=== PATIENT | male | born 1935 | race Caucasian/White ===

== ENCOUNTER 2018-12-14 10:21 | Inpatient (IN) | payer MEDICARE, BC ==
[2018-12-14] MEDS: ALPRAZolam 0.25 MG Tab PO PRN (20:45)
[2018-12-14] MEDS: Chondroitin/Glucosamine Cap PO SCH (20:45)
[2018-12-14] MEDS: Ascorbic Acid 500 MG Tab PO SCH (20:45)
[2018-12-14] MEDS: Donepezil 10 MG Tab PO SCH (20:49)
[2018-12-14] MEDS: Acetaminophen 325 MG Tab PO PRN (20:49)
[2018-12-15] MEDS: Acetaminophen 325 MG Tab PO PRN ×2 (06:29→13:25)
[2018-12-15] MEDS: Levothyroxine 75 MCG Tab PO SCH (06:29)
[2018-12-15 07:47] LABS: ANION GAP 13.2 mmol/L (5-15); CHLORIDE,CL 100 mmol/L (98-115); SODIUM,NA 139 mmol/L (136-145)
--- NOTE | 2018-12-15 08:53 | CR ---
[id number] RAD/RAD Chest PA And Lateral EXAM: FRONTAL AND LATERAL CHEST INDICATION: Fever. COMPARISON: None. DISCUSSION: The heart is mildly enlarged. Mild bilateral interstitial infiltrates and/or edema with patchy airspace opacities on the right that could represent asymmetric pulmonary edema or sequela of infection. There is a small right pleural effusion with associated right base atelectasis. IMPRESSION: 1. Bilateral interstitial and right airspace opacities, pulmonary edema and/or infiltrates could both have this appearance. Holland Prado MD 12/15/18 0852 Thank you for allowing us to participate in the care of your patient.
[2018-12-15] MEDS ORDERED: Hydrochlorothiazide 25 MG Tab PO SCH (09:00)
[2018-12-15] MEDS ORDERED: FLAXSEED OIL 2000 MG PO SCH (09:00)
[2018-12-15] MEDS: Multivitamins with Minerals/Iron/Folic Acid/Lycopene Tab PO SCH (09:02)
[2018-12-15] MEDS: Aspirin 325 MG Tab.EC PO SCH (09:02)
[2018-12-15] MEDS: Ascorbic Acid 500 MG Tab PO SCH ×2 (09:03→20:14)
[2018-12-15] MEDS: Chondroitin/Glucosamine Cap PO SCH ×2 (09:03→20:12)
[2018-12-15] MEDS: Vitamin E (dl-alpha-tocopherol acetate) 400 Unit Cap PO SCH (09:03)
[2018-12-15] MEDS: Cholecalciferol (Vitamin D3) 25 MCG Tab PO SCH (09:15)
[2018-12-15] MEDS: Fish Oil/Omega-3 Fatty Acids 1 Gm Cap PO SCH (09:15)
[2018-12-15] MEDS: Psyllium Husk Powder Sugar Free 5.85 GM Packet PO SCH (09:16)
--- NOTE | 2018-12-15 09:30 | PCM.PN ---
- General Info Date of Service: 12/15/18 Functional Status: Reports: Pain Controlled, Tolerating Diet, Urinating ( Incontinent). Denies: Ambulating - Review of Systems General: Reports: Weakness Pulmonary: Reports: Cough. Denies: Shortness of Breath, Sputum, Wheezing Cardiovascular: Denies: Chest Pain, Palpitations, Edema Gastrointestinal: Reports: Constipation (Per nurse's bowel movement yesterday). Denies: Abdominal Pain, Decreased Appetite, Diarrhea, Nausea, Vomiting Genitourinary: Reports: Incontinence Musculoskeletal: Reports: No Symptoms Skin: Reports: Pallor. Denies: Jaundice, Diaphoresis, Bruising Neurological: Reports: Confusion, Pre-Existing Deficit. Denies: Tremors Psychiatric: Reports: Confusion. Denies: Agitation - Patient Data Vitals - Most Recent: Last Vital Signs Temp 100.5 F 12/15/18 06:35 Pulse 84 12/15/18 06:35 Resp 24 H 12/15/18 06:35 BP 106/54 L 12/15/18 06:35 Pulse Ox 91 L 12/15/18 06:45 Weight - Most Recent: 136 lb 8 oz I&O - Last 24 Hours: Intake & Output 12/14/18 12/15/18 12/15/18 22:59 06:59 14:59 Intake Total 150 150 Output Total 30 Balance 150 120 Lab Results Last 24 Hours: Laboratory Results - last 24 hr 12/14/18 12/14/18 12/15/18 Range/Units 19:00 19:00 06:28 WBC 28.47 H (5.00-10.00) 10^3/uL RBC 3.41 L (4.50-6.00) 10^6/uL Hgb 11.3 L (13.0-17.0) g/dL Hct 33.5 L (40.0-52.0) % MCV 98.2 H (82.0-92.0) fL MCH 33.1 H (27.0-31.0) pg MCHC 33.7 (32.0-36.0) g/dL RDW 13.2 (11.5-14.5) % Plt Count 406 H (150-400) 10^3/uL MPV 9.9 (7.4-10.4) fL Add Manual Diff Yes Neutrophils % (Manual) 86 H (50-70) % Band Neutrophils % 1 L (4-12) % Lymphocytes % (Manual) 7 L (20-40) % Monocytes % (Manual) 6 (2-8) % Eosinophils % (Manual) (1-3) % Absolute Neutrophils 24.48 Band Neutrophils # 0.28 Lymphocytes # (Manual) 1.99 Monocytes # (Manual) 1.71 Eosinophils # (Manual) ESR (0-15) mm/hr Sodium (136-145) mmol/L Potassium (3.3-5.3) mmol/L Chloride (98-115) mmol/L Carbon Dioxide (21.0-32.0) mmol/L Anion Gap (5-15) mmol/L BUN (6-25) mg/dL Creatinine (0.51-1.17) mg/dL Est Cr Clr Drug Dosing mL/min Estimated GFR (MDRD) mL/min Glucose (75 - 99) mg/dL Lactic Acid 0.9 (0.4-2.0) mmol/L Calcium (8.7-10.3) mg/dL Total Bilirubin (0.2-1.0) mg/dL AST (15-37) U/L ALT (12-78) U/L Alkaline Phosphatase (46-116) IU/L Total Protein (6.4-8.2) g/dL Albumin (3.00-4.80) g/dL Specimen Type Urinvoid Urine Color Yellow (YELLOW) Urine Appearance Clear (CLEAR) Urine pH 5.5 (5.0-9.0) Ur Specific [place] 1.025 (1.005-1.030) Urine Protein 100 H (NEGATIVE) mg/dL Urine Glucose (UA) Negative (NEGATIVE) mg/dL Urine Ketones Negative (NEGATIVE) mg/dL Urine Occult Blood Negative (NEGATIVE) Urine Nitrite Negative (NEGATIVE) Urine Bilirubin Negative (NEGATIVE) Urine Urobilinogen 1.0 (0.2-1.0) E.U./dL Ur Leukocyte Esterase Negative (NEGATIVE) Urine RBC 0-5 (0-5) /HPF Urine WBC 5-10 H (0-5) /HPF Ur Epithelial Cells Few /LPF Urine Bacteria Occasional (NONE TO FEW) /HPF Urine Mucus Many H (NEGATIVE) /LPF 12/15/18 12/15/18 12/15/18 Range/Units 07:05 07:05 07:05 WBC 29.15 H (5.00-10.00) 10^3/uL RBC 3.16 L (4.50-6.00) 10^6/uL Hgb 10.3 L (13.0-17.0) g/dL Hct 30.8 L (40.0-52.0) % MCV 97.5 H (82.0-92.0) fL MCH 32.6 H (27.0-31.0) pg MCHC 33.4 (32.0-36.0) g/dL RDW 13.3 (11.5-14.5) % Plt Count 383 (150-400) 10^3/uL MPV 9.8 (7.4-10.4) fL Add Manual Diff Yes Neutrophils % (Manual) 85 H (50-70) % Band Neutrophils % (4-12) % Lymphocytes % (Manual) 5 L (20-40) % Monocytes % (Manual) 8 (2-8) % Eosinophils % (Manual) 2 (1-3) % Absolute Neutrophils 24.7775 Band Neutrophils # Lymphocytes # (Manual) 1.4575 Monocytes # (Manual) 2.3320 Eosinophils # (Manual) 0.5830 ESR 128 H (0-15) mm/hr Sodium 139 (136-145) mmol/L Potassium 3.8 (3.3-5.3) mmol/L Chloride 100 (98-115) mmol/L Carbon Dioxide 29.6 (21.0-32.0) mmol/L Anion Gap 13.2 (5-15) mmol/L BUN 22 (6-25) mg/dL Creatinine 0.84 (0.51-1.17) mg/dL Est Cr Clr Drug Dosing 59.38 mL/min Estimated GFR (MDRD) > 60 mL/min Glucose 116 H (75 - 99) mg/dL Lactic Acid (0.4-2.0) mmol/L Calcium 9.2 (8.7-10.3) mg/dL Total Bilirubin 0.9 (0.2-1.0) mg/dL AST 20 (15-37) U/L ALT 24 (12-78) U/L Alkaline Phosphatase 86 (46-116) IU/L Total Protein 6.6 (6.4-8.2) g/dL Albumin 2.29 L (3.00-4.80) g/dL Specimen Type Urine Color (YELLOW) Urine Appearance (CLEAR) Urine pH (5.0-9.0) Ur Specific [place] (1.005-1.030) Urine Protein (NEGATIVE) mg/dL Urine Glucose (UA) (NEGATIVE) mg/dL Urine Ketones (NEGATIVE) mg/dL Urine Occult Blood (NEGATIVE) Urine Nitrite (NEGATIVE) Urine Bilirubin (NEGATIVE) Urine Urobilinogen (0.2-1.0) E.U./dL Ur Leukocyte Esterase (NEGATIVE) Urine RBC (0-5) /HPF Urine WBC (0-5) /HPF Ur Epithelial Cells /LPF Urine Bacteria (NONE TO FEW) /HPF Urine Mucus (NEGATIVE) /LPF 12/15/18 Range/Units 07:05 WBC (5.00-10.00) 10^3/uL RBC (4.50-6.00) 10^6/uL Hgb (13.0-17.0) g/dL Hct (40.0-52.0) % MCV (82.0-92.0) fL MCH (27.0-31.0) pg MCHC (32.0-36.0) g/dL RDW (11.5-14.5) % Plt Count (150-400) 10^3/uL MPV (7.4-10.4) fL Add Manual Diff Neutrophils % (Manual) (50-70) % Band Neutrophils % (4-12) % Lymphocytes % (Manual) (20-40) % Monocytes % (Manual) (2-8) % Eosinophils % (Manual) (1-3) % Absolute Neutrophils Band Neutrophils # Lymphocytes # (Manual) Monocytes # (Manual) Eosinophils # (Manual) ESR (0-15) mm/hr Sodium (136-145) mmol/L Potassium (3.3-5.3) mmol/L Chloride (98-115) mmol/L Carbon Dioxide (21.0-32.0) mmol/L Anion Gap (5-15) mmol/L BUN (6-25) mg/dL Creatinine (0.51-1.17) mg/dL Est Cr Clr Drug Dosing mL/min Estimated GFR (MDRD) mL/min Glucose (75 - 99) mg/dL Lactic Acid 0.9 (0.4-2.0) mmol/L Calcium (8.7-10.3) mg/dL Total Bilirubin (0.2-1.0) mg/dL AST (15-37) U/L ALT (12-78) U/L Alkaline Phosphatase (46-116) IU/L Total Protein (6.4-8.2) g/dL Albumin (3.00-4.80) g/dL Specimen Type Urine Color (YELLOW) Urine Appearance (CLEAR) Urine pH (5.0-9.0) Ur Specific [place] (1.005-1.030) Urine Protein (NEGATIVE) mg/dL Urine Glucose (UA) (NEGATIVE) mg/dL Urine Ketones (NEGATIVE) mg/dL Urine Occult Blood (NEGATIVE) Urine Nitrite (NEGATIVE) Urine Bilirubin (NEGATIVE) Urine Urobilinogen (0.2-1.0) E.U./dL Ur Leukocyte Esterase (NEGATIVE) Urine RBC (0-5) /HPF Urine WBC (0-5) /HPF Ur Epithelial Cells /LPF Urine Bacteria (NONE TO FEW) /HPF Urine Mucus (NEGATIVE) /LPF [place] Results Last 24 Hours: Microbiology 12/14/18 18:48 Influenza Type A Antigen Screen - Final Nasal, Unspecified NEGATIVE INFLUENZA A VIRUS AG REFERENCE RANGE: NEGATIVE Influenza Type B Antigen Screen - Final NEGATIVE INFLUENZA B VIRUS AG REFERENCE RANGE: NEGATIVE Med Orders - Current: Current Medications Acetaminophen (Tylenol) 650 mg PO Q4H PRN PRN Reason: FEVER Last Admin: 12/15/18 06:29 Dose: 650 mg Alprazolam (Xanax) 0.25 mg PO TID PRN PRN Reason: Agitation Last Admin: 12/14/18 20:45 Dose: 0.25 mg Ascorbic Acid (Vitamin C) 500 mg PO BID [facility] Last Admin: 12/15/18 09:03 Dose: 500 mg Aspirin (Ecotrin) 325 mg PO DAILY [facility] Last Admin: 12/15/18 09:02 Dose: 325 mg Cholecalciferol (Vitamin D3) 25 mcg PO DAILY [facility] Last Admin: 12/15/18 09:15 Dose: 25 mcg Donepezil HCl (Aricept) 10 mg PO BEDTIME [facility] Last Admin: 12/14/18 20:49 Dose: 10 mg Fish Oil (Fish Oil) 1 gm PO DAILY [facility] Last Admin: 12/15/18 09:15 Dose: 1 gm Glucosamine/Chondroitin (Glucosamine-Chondroitin 500-400 Capsule) 1 cap PO BID [facility] Last Admin: 12/15/18 09:03 Dose: 1 cap Hydrochlorothiazide (Hydrochlorothiazide) 12.5 mg PO DAILY [facility] Last Admin: 12/15/18 09:15 Dose: Not Given Levothyroxine Sodium (Levothyroxine) 75 mcg PO ACBREAKFAST [facility] Last Admin: 12/15/18 06:29 Dose: 75 mcg Multivitamins/Minerals (Centrum) 1 tab PO DAILY [facility] Last Admin: 12/15/18 09:02 Dose: 1 tab Non-Formulary Medication (Flaxseed Oil [Flax Oil]) 2,000 mg PO DAILY [facility] Psyllium Husk (Metamucil Sugar Free) 1 pkt PO DAILY [facility] Last Admin: 12/15/18 09:16 Dose: Not Given Sodium Chloride (Saline Flush) 10 ml FLUSH Q8HR PRN PRN Reason: keep vein open Vitamin E (Vitamin E) 400 units PO DAILY [facility] Last Admin: 12/15/18 09:03 Dose: 400 units - Exam Quality Assessment: Supplemental Oxygen General: Alert HEENT: Mucous Membr. Moist/[place]. No: Scleral Icterus Neck: No JVD. No: Lymphadenopathy, Thyromegaly Lungs: Crackles, Rhonchi. No: Rub, Stridor, Wheezing Cardiovascular: Regular Rate, Regular Rhythm, No Murmurs. No: Tachycardia, Murmurs, Gallops, Rubs GI/Abdominal Exam: Soft, Non-Tender, No Organomegaly, No Distention. No: Normal Bowel Sounds (Hyper in tone bowel tones), Distended, Guarding, Rigid, Tender, Hernia, Mass, Hepatomegaly, Splenomegaly (Male) Exam: Deferred Extremities: Pedal Edema. No: Slow Capillary Refill Peripheral Pulses: 1+: Radial (L), Radial (R) Skin: Dry, Cool. No: Moist, Rash Neurological: Normal Speech, Strength Equal Bilateral, Sensation Intact Psy/Mental Status: Alert. No: Anxious, Agitated - Problem List Review Problem List Initiated/Reviewed/Updated: Yes - Plan Plan:: History summary/prehospital course 83-year-old gentleman was admitted into OBS status by Sara Alaniz NP from [facility]. Patient is a recent resident of a local long-term care center. Patient had been running on and off fevers per [facility] records, along with ongoing weakness and confusion worse than the patient's baseline. Patient also complaining of nonproductive cough over no wheezing or shortness of breath. No GI type symptoms no abdominal pain nausea vomiting or diarrhea. Had UA on December 12 which was negative. Patient was admitted for observation for repeat CBC this morning. Pertinent clinical workup -White count 23,000 neutrophilia 81% --Elevated inflammatory marker, CRP greater than 200, ESR 84, urine clear --Chest x-ray, non-concerning, lungs underinflated, no consolidation --Systolic BP 110 decrease from baseline --Elevated BUN/creatinine ratio --O2 sat 94% RA _ Update/overnight concerns No overnight calls or concerns, repeat chest x-ray bilateral interstitial infiltrates and/or edema with patchy airspace opacities. White count 29,000 ongoing neutrophilia, low-grade fevers. Negative influenza Forceful cough does demonstrate uncorrectable sputum. Low BP. Blood cx demonstrate both Aerobic/ Anaerobic and positive cocci Primary hospital problems --Suspect Pneumonia, HCAP, will start broad-spectrum BX along with vancomycin to cover gram-positive, pharmacy to dose and trough Chronic/stable problems 1. Alzheimer's dementia- on Aricept and Vitamin E 2. HTN, holding hoime HCTZ 3. Hypothyroidism- current TSH 4.0 on Levothyroxine. 4. 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 Hypercholesterolemia- on Fish oil. 6. Constipation- Metamucil daily. 7. Osteoarthritis- Glucosamine BID. Acetaminophen PRN. 8. Carotid artery disease. Add PPI to aspirin 9. Abdominal aortic aneurysm, without rupture. No bruit Dispostion/overall plan --Changed from OBS to inpatient status --Start antibiotics, monitor for septic shock --Sputum culture --Incentive spirometer, respiratory consult --Start gentle isotonic fluids --Will need BC surveillance since BC gm + cocci, --Hold HCTZ --DVT prophylaxis teds, --GI prophylaxis PPI, especially in light of aspirin
[2018-12-15] MEDS ORDERED: Piperacillin/Tazobactam 3.375 GM in Sodium Chloride 0.9% 100 ML IV SCH (10:15)
[2018-12-15] MEDS ORDERED: Sodium Chloride 0.9% 1,000 ML IV SCH (10:30)
[2018-12-15] MEDS: Sodium Chloride 0.9% 10 ML Syringe FLUSH PRN (11:23)
[2018-12-15] MEDS: Pantoprazole 40 MG Vial IVPUSH SCH (11:24)
[2018-12-15] MEDS: Piperacillin/Tazobactam/Dext 3.375 GM in Premix Bag 1 BAG IV SCH ×2 (13:25→18:57)
[2018-12-15] MEDS: Donepezil 10 MG Tab PO SCH (20:14)
[2018-12-16] MEDS: Piperacillin/Tazobactam/Dext 3.375 GM in Premix Bag 1 BAG IV SCH ×4 (02:05→18:32)
[2018-12-16] MEDS: Acetaminophen 325 MG Tab PO PRN ×2 (02:09→21:55)
[2018-12-16] MEDS: ALPRAZolam 0.25 MG Tab PO PRN (03:07)
[2018-12-16] MEDS: Levothyroxine 75 MCG Tab PO SCH (07:54)
[2018-12-16 08:15] LABS: ANION GAP 12.7 mmol/L (5-15); CHLORIDE,CL 103 mmol/L (98-115); SODIUM,NA 141 mmol/L (136-145)
[2018-12-16] MEDS: Pantoprazole 40 MG Vial IVPUSH SCH (08:32)
[2018-12-16] MEDS: Fish Oil/Omega-3 Fatty Acids 1 Gm Cap PO SCH (08:33)
[2018-12-16] MEDS: Aspirin 325 MG Tab.EC PO SCH (08:33)
[2018-12-16] MEDS: Ascorbic Acid 500 MG Tab PO SCH ×2 (08:33→21:48)
[2018-12-16] MEDS: Vitamin E (dl-alpha-tocopherol acetate) 400 Unit Cap PO SCH (08:33)
[2018-12-16] MEDS: Multivitamins with Minerals/Iron/Folic Acid/Lycopene Tab PO SCH (08:33)
[2018-12-16] MEDS: Chondroitin/Glucosamine Cap PO SCH ×2 (08:33→21:48)
[2018-12-16] MEDS: Cholecalciferol (Vitamin D3) 25 MCG Tab PO SCH (08:33)
[2018-12-16] MEDS: Psyllium Husk Powder Sugar Free 5.85 GM Packet PO SCH (08:34)
--- NOTE | 2018-12-16 09:42 | PCM.PN ---
- General Info Date of Service: 12/16/18 Functional Status: Reports: Pain Controlled - Review of Systems General: Reports: Fever. Denies: Weakness HEENT: Reports: No Symptoms Pulmonary: Reports: Cough, Sputum. Denies: Shortness of Breath Cardiovascular: Reports: Dyspnea on Exertion Gastrointestinal: Reports: No Symptoms Genitourinary: Reports: Incontinence Musculoskeletal: Reports: No Symptoms Neurological: Reports: Confusion, Pre-Existing Deficit, Weakness Psychiatric: Reports: Confusion. Denies: Agitation - Patient Data Vitals - Most Recent: Last Vital Signs Temp 97.1 F 12/16/18 07:00 Pulse 50 L 12/16/18 07:00 Resp 24 H 12/16/18 07:00 BP 90/49 L 12/16/18 07:00 Pulse Ox 97 12/16/18 07:00 Weight - Most Recent: 136 lb 8 oz I&O - Last 24 Hours: Intake & Output 12/15/18 12/16/18 12/16/18 22:59 06:59 14:59 Intake Total 980 1458 Balance 980 1458 Lab Results Last 24 Hours: Laboratory Results - last 24 hr 12/15/18 12/16/18 12/16/18 Range/Units 07:05 07:20 07:20 WBC 29.7 H 22.40 H (3.9-11.3) x10-3 ul RBC 3.15 L 2.43 L (4.52-5.90) x10-6 ul Hgb 10.1 L 7.9 L D (14.0-18.0) gm/dL Hct 30.9 L 24.1 L (42.0-52.0) % MCV 98 99.2 H (83-99) fL MCH 32.1 H 32.5 H (28.0-32.0) pg MCHC 32.7 32.8 (32.0-36.0) g/dL RDW 13.6 13.8 (11.2-15.2) % Plt Count 276 311 (150-400) x10-3 ul MPV 11.2 H (7.4-10.4) fL Immature Gran % (Auto) 1.4 (0.0-5.0) % Neut % (Auto) 79.8 H (50.0-70.0) % Lymph % (Auto) 10.7 L (20.0-40.0) % [place] % (Auto) 7.1 (2.0-8.0) % Eos % (Auto) 0.8 L (1.0-3.0) % Baso % (Auto) 0.2 (0.0-1.0) % Immature Gran # (Auto) 0.32 (0.00-0.50) 10^3/uL Neut # (Auto) 17.86 H (2.50-7.00) 10^3/uL Lymph # (Auto) 2.39 (1.00-4.00) 10^3/uL [place] # (Auto) 1.60 H (0.10-0.80) 10^3/uL Eos # (Auto) 0.19 (0.10-0.30) 10^3/uL Baso # (Auto) 0.04 (0.00-0.10) 10^3/uL Neutrophils % (Manual) 77 % Band Neuts % (Manual) 15 % Lymphocytes % (Manual) 2 % Monocytes % (Manual) 6 % Eosinophils % (Manual) 0 % Basophils % (Manual) 0 % Neutrophils # (Manual) 22.87 H (1.80-7.00) x10-3 ul Band Neutrophils # Man 4.46 H (0.00-0.70) x10-3 ul Lymphocytes # (Manual) 0.59 L (1.00-4.80) x10-3 ul Monocytes # (Manual) 1.78 H (0.00-0.80) x10-3 ul Eosinophils # (Manual) 0.00 (0.00-0.45) x10-3 ul Basophils # (Manual) 0.00 (0.00-0.20) x10-3 ul RBC/WBC/PLT Morphology Abnormal (Normal) Hypersegmented Neuts Seen (Absent) Dohle Bodies Seen (Absent) Platelet Estimate Adequate Adequate Smear Path Review Path rpt Absolute Retic 0.0384 (0.0200-0.1000) x10-6 ul Percent Retic 1.2 (0.3-2.2) % Immature Retic Fraction 14.1 H (2.3-13.4) % Retic Hgb Equivalent 29.4 L (31.9-38.5) pg Sodium 141 (136-145) mmol/L Potassium 3.7 (3.3-5.3) mmol/L Chloride 103 (98-115) mmol/L Carbon Dioxide 29.0 (21.0-32.0) mmol/L Anion Gap 12.7 (5-15) mmol/L BUN 31 H (6-25) mg/dL Creatinine 0.94 (0.51-1.17) mg/dL Est Cr Clr Drug Dosing 53.06 mL/min Estimated GFR (MDRD) > 60 mL/min Glucose 97 (75 - 99) mg/dL Calcium 8.8 (8.7-10.3) mg/dL [place] Results Last 24 Hours: Microbiology 12/14/18 19:00 Aerobic Blood Culture - Preliminary Blood Anaerobic Blood Culture - Preliminary 12/14/18 18:40 Aerobic Blood Culture - Preliminary Blood Anaerobic Blood Culture - Preliminary Med Orders - Current: Current Medications Acetaminophen (Tylenol) 650 mg PO Q4H PRN PRN Reason: FEVER Last Admin: 12/16/18 02:09 Dose: 650 mg Alprazolam (Xanax) 0.25 mg PO TID PRN PRN Reason: Agitation Last Admin: 12/16/18 03:07 Dose: 0.25 mg Ascorbic Acid (Vitamin C) 500 mg PO BID [facility] Last Admin: 12/16/18 08:33 Dose: 500 mg Aspirin (Ecotrin) 325 mg PO DAILY [facility] Last Admin: 12/16/18 08:33 Dose: 325 mg Cholecalciferol (Vitamin D3) 25 mcg PO DAILY [facility] Last Admin: 12/16/18 08:33 Dose: 25 mcg Donepezil HCl (Aricept) 10 mg PO BEDTIME [facility] Last Admin: 12/15/18 20:14 Dose: 10 mg Fish Oil (Fish Oil) 1 gm PO DAILY [facility] Last Admin: 12/16/18 08:33 Dose: 1 gm Glucosamine/Chondroitin (Glucosamine-Chondroitin 500-400 Capsule) 1 cap PO BID [facility] Last Admin: 12/16/18 08:33 Dose: 1 cap Hydrochlorothiazide (Hydrochlorothiazide) 12.5 mg PO DAILY [facility] Last Admin: 12/15/18 09:15 Dose: Not Given Sodium Chloride (Normal Saline) 1,000 mls @ 60 mls/hr IV ASDIRECTED [facility] Last Admin: 12/15/18 11:27 Dose: 60 mls/hr Vancomycin HCl 1 gm/ Sodium (Chloride) 250 mls @ 167 mls/hr IV Q12H [facility] Last Admin: 12/16/18 00:16 Dose: 167 mls/hr Piperacillin/Tazobactam/ (Dextrose 3.375 gm/ Premix) 50 mls @ 100 mls/hr IV Q6H [facility] Last Admin: 12/16/18 07:53 Dose: 100 mls/hr Levothyroxine Sodium (Levothyroxine) 75 mcg PO ACBREAKFAST [facility] Last Admin: 12/16/18 07:54 Dose: 75 mcg Multivitamins/Minerals (Centrum) 1 tab PO DAILY [facility] Last Admin: 12/16/18 08:33 Dose: 1 tab Non-Formulary Medication (Flaxseed Oil [Flax Oil]) 2,000 mg PO DAILY [facility] Last Admin: 12/15/18 13:29 Dose: Not Given Pantoprazole Sodium (Protonix Iv) 40 mg IVPUSH DAILY [facility] Last Admin: 12/16/18 08:32 Dose: 40 mg Psyllium Husk (Metamucil Sugar Free) 1 pkt PO DAILY [facility] Last Admin: 12/16/18 08:34 Dose: 1 pkt Sodium Chloride (Saline Flush) 10 ml FLUSH Q8HR PRN PRN Reason: keep vein open Last Admin: 12/15/18 11:23 Dose: 10 ml Vancomycin HCl (Pharmacy To Dose - Vancomycin) 1 dose .XX Q12H [facility] Vitamin E (Vitamin E) 400 units PO DAILY [facility] Last Admin: 12/16/18 08:33 Dose: 400 units Discontinued Medications Vancomycin HCl 1 gm/ Sodium (Chloride) 250 mls @ 167 mls/hr IV Q12H [facility] Last Admin: 12/15/18 11:48 Dose: Not Given - Exam Quality Assessment: Supplemental Oxygen (Liter oxygen), DVT Prophylaxis General: Alert, Oriented (Pleasantly confused however can converse with short answers only), Cooperative, No Acute Distress HEENT: Mucous Membr. Moist/[place]: No JVD Lungs: Rhonchi. No: Wheezing Cardiovascular: Regular Rate, Regular Rhythm. No: Bradycardia, Tachycardia GI/Abdominal Exam: Normal Bowel Sounds, Soft, No Distention (Male) Exam: No: Rash Back Exam: No: CVA Tenderness (R) Extremities: No Pedal Edema Peripheral Pulses: 1+: Radial (R), 2+: Radial (L) Skin: Dry Neurological: Normal Speech, Normal Tone Psy/Mental Status: Normal Affect, Normal Mood. No: Anxious - Problem List Review Problem List Initiated/Reviewed/Updated: Yes - My Orders Last 24 Hours: My Active Orders 12/15/18 10:12 Blood Culture x2 Reflex Set [OM.PC] Stat 12/15/18 10:15 Antiembolic Devices [RC] 0900,2100 RORY Hose Substitution [Sequential Compression Device] [OM.PC] Routine 12/15/18 10:17 Intake and Output [RC] Q8HR 12/15/18 10:18 CULTURE SPUTUM + SMEAR [RM] Routine 12/15/18 10:21 Patient Status [ADT] Routine 12/15/18 10:30 Pantoprazole [ProTONIX IV] 40 mg IVPUSH DAILY Sodium Chloride 0.9% [Normal Saline] 1,000 ml IV ASDIRECTED 12/15/18 11:30 Pharmacy to Dose - Vancomycin 1 dose .XX Q12H Vancomycin 1 gm Sodium Chloride 0.9% [Normal Saline] 250 ml IV Q12H 12/15/18 13:00 Piperacillin/Tazobactam/Dext [Zosyn in Dextrose Iso-Osmotic 3.375 GM] 3.375 gm Premix Bag 1 bag IV Q6H 12/16/18 07:20 CULTURE BLOOD [BC] Stat 12/16/18 07:35 CULTURE BLOOD [BC] Stat 12/17/18 11:00 VANCOMYCIN TROUGH [CHEM] Routine - Plan Plan:: History summary/prehospital course 83-year-old gentleman was admitted into OBS status by Sara Alaniz NP from [facility]. Patient is a recent resident of a local long-term care center. Patient had been running on and off fevers per [facility] records, along with ongoing weakness and confusion worse than the patient's baseline. Patient also complaining of nonproductive cough over no wheezing or shortness of breath. No GI type symptoms no abdominal pain nausea vomiting or diarrhea. Had UA on December 12 which was negative. Patient was admitted for observation for repeat CBC this morning. Pertinent clinical workup -White count 23,000 neutrophilia 81% --Elevated inflammatory marker, CRP greater than 200, ESR 84, urine clear --Chest x-ray, non-concerning, lungs underinflated, no consolidation --Systolic BP 110 decrease from baseline --Elevated BUN/creatinine ratio --O2 sat 94% RA _ Update/overnight concerns No overnight calls or concerns however concerning low blood pressures early this morning with MAP, White count/neutrophilia, no longer febrile. Negative influenza, Blood cx demonstrate both Aerobic/Anaerobic and positive cocci, repeated this morning Primary hospital problems --Suspect Pneumonia, HCAP, will start broad-spectrum BX along with vancomycin to cover gram-positive, pharmacy to dose and trough --Bacteremia without septic shock --Anemia, multi-factorial, acute phase, decreased stem-cell production in light of infection, delutional, no anisocytosis, will monitor Chronic/stable problems 1. Alzheimer's dementia- on Aricept and Vitamin E 2. HTN, holding home HCTZ 3. Hypothyroidism- current TSH 4.0 on Levothyroxine. 4. 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 Hypercholesterolemia- on Fish oil. 6. Constipation- Metamucil daily. 7. Osteoarthritis- Glucosamine BID. Acetaminophen PRN. 8. Carotid artery disease. Add PPI to aspirin 9. Abdominal aortic aneurysm, without rupture. No bruits Dispostion/overall plan --Continue inpatient status --Continue broad-spectrum antibiotics along with renal dose vancomycin --IV Fluid challenges throughout the day, close monitoring of worsening mentation, tachypnea, fevers or decreasing MAP --Sputum culture --1 time K+ supplementation --Incentive spirometer, encourage --Will need BC surveillance since BC gm + cocci, --Hold HCTZ --DVT prophylaxis teds, --GI prophylaxis PPI, especially in light of ASA regimen
[2018-12-16] MEDS ORDERED: Sodium Chloride 0.9% 400 ML IV ONE (09:43)
[2018-12-16] MEDS: Sodium Chloride 0.9% 1,000 ML IV SCH ×2 (16:48→23:24)
[2018-12-16] MEDS ORDERED: Potassium Chloride 10 MEQ Tab.ER PO ONE (17:00)
[2018-12-16] MEDS: Donepezil 10 MG Tab PO SCH (21:48)
[2018-12-17] MEDS: ALPRAZolam 0.25 MG Tab PO PRN ×3 (01:23→22:25)
[2018-12-17] MEDS: Piperacillin/Tazobactam/Dext 3.375 GM in Premix Bag 1 BAG IV SCH ×2 (01:24→06:22)
[2018-12-17] MEDS: Acetaminophen 325 MG Tab PO PRN (02:24)
[2018-12-17 07:41] LABS: ANION GAP 10.8 mmol/L (5-15); CHLORIDE,CL 103 mmol/L (98-115); SODIUM,NA 138 mmol/L (136-145)
[2018-12-17] MEDS: Levothyroxine 75 MCG Tab PO SCH (07:57)
[2018-12-17] MEDS: Fish Oil/Omega-3 Fatty Acids 1 Gm Cap PO SCH (08:50)
[2018-12-17] MEDS: Aspirin 325 MG Tab.EC PO SCH (08:50)
[2018-12-17] MEDS: Cholecalciferol (Vitamin D3) 25 MCG Tab PO SCH (08:50)
[2018-12-17] MEDS: Multivitamins with Minerals/Iron/Folic Acid/Lycopene Tab PO SCH (08:51)
[2018-12-17] MEDS: Ascorbic Acid 500 MG Tab PO SCH ×2 (08:51→22:00)
[2018-12-17] MEDS: Chondroitin/Glucosamine Cap PO SCH ×2 (08:51→22:00)
[2018-12-17] MEDS: Vitamin E (dl-alpha-tocopherol acetate) 400 Unit Cap PO SCH (08:51)
[2018-12-17] MEDS: Pantoprazole 40 MG Vial IVPUSH SCH (08:52)
[2018-12-17] MEDS: Psyllium Husk Powder Sugar Free 5.85 GM Packet PO SCH (08:52)
--- NOTE | 2018-12-17 09:43 | PCM.PN ---
- General Info Date of Service: 12/17/18 Functional Status: Reports: Pain Controlled, Tolerating Diet, Ambulating, Urinating, Incentive Spirometry, Other (nurses reported no sleep last night, sligh figity. ). Denies: New Symptoms - Review of Systems General: Denies: Fever, Weakness, Fatigue Pulmonary: Reports: No Symptoms Cardiovascular: Reports: No Symptoms Gastrointestinal: Denies: Diarrhea, Nausea Genitourinary: Reports: Incontinence Skin: Denies: Dryness Neurological: Reports: Confusion - Patient Data Vitals - Most Recent: Last Vital Signs Temp 96.8 F 12/17/18 05:28 Pulse 62 12/17/18 05:28 Resp 20 12/17/18 05:28 BP 108/68 12/17/18 05:28 Pulse Ox 95 12/17/18 05:28 Weight - Most Recent: 136 lb 8 oz I&O - Last 24 Hours: Intake & Output 12/16/18 12/17/18 12/17/18 22:59 06:59 14:59 Intake Total 1680 1805 Output Total 200 350 Balance 1480 1455 Lab Results Last 24 Hours: Laboratory Results - last 24 hr 12/17/18 12/17/18 Range/Units 07:05 07:05 WBC 10.84 H D (5.00-10.00) 10^3/uL RBC 2.95 L (4.50-6.00) 10^6/uL Hgb 9.6 L D (13.0-17.0) g/dL Hct 29.3 L (40.0-52.0) % MCV 99.3 H (82.0-92.0) fL MCH 32.5 H (27.0-31.0) pg MCHC 32.8 (32.0-36.0) g/dL RDW 13.7 (11.5-14.5) % Plt Count 381 (150-400) 10^3/uL MPV 10.2 (7.4-10.4) fL Immature Gran % (Auto) 3.0 (0.0-5.0) % Neut % (Auto) 65.1 (50.0-70.0) % Lymph % (Auto) 19.1 L (20.0-40.0) % [place] % (Auto) 8.6 H (2.0-8.0) % Eos % (Auto) 3.8 H (1.0-3.0) % Baso % (Auto) 0.4 (0.0-1.0) % Immature Gran # (Auto) 0.32 (0.00-0.50) 10^3/uL Neut # (Auto) 7.07 H (2.50-7.00) 10^3/uL Lymph # (Auto) 2.07 (1.00-4.00) 10^3/uL [place] # (Auto) 0.93 H (0.10-0.80) 10^3/uL Eos # (Auto) 0.41 H (0.10-0.30) 10^3/uL Baso # (Auto) 0.04 (0.00-0.10) 10^3/uL Sodium 138 (136-145) mmol/L Potassium 4.2 (3.3-5.3) mmol/L Chloride 103 (98-115) mmol/L Carbon Dioxide 28.4 (21.0-32.0) mmol/L Anion Gap 10.8 (5-15) mmol/L BUN 23 (6-25) mg/dL Creatinine 0.80 (0.51-1.17) mg/dL Est Cr Clr Drug Dosing 62.35 mL/min Estimated GFR (MDRD) > 60 mL/min Glucose 97 (75 - 99) mg/dL Calcium 8.4 L (8.7-10.3) mg/dL [place] Results Last 24 Hours: Microbiology 12/14/18 19:00 Bacterial Identification - Preliminary Blood Streptococcus Pneumoniae 12/14/18 19:00 Bacterial Identification - Preliminary Blood Streptococcus Pneumoniae 12/16/18 07:35 Aerobic Blood Culture - Preliminary Blood - Venous - Lab Draw NO GROWTH AFTER 1 DAY Anaerobic Blood Culture - Preliminary NO GROWTH AFTER 1 DAY 12/16/18 07:20 Aerobic Blood Culture - Preliminary Blood - Venous NO GROWTH AFTER 1 DAY Anaerobic Blood Culture - Preliminary NO GROWTH AFTER 1 DAY Med Orders - Current: Current Medications Acetaminophen (Tylenol) 650 mg PO Q4H PRN PRN Reason: FEVER Last Admin: 12/17/18 02:24 Dose: 650 mg Alprazolam (Xanax) 0.25 mg PO TID PRN PRN Reason: Agitation Last Admin: 12/17/18 01:23 Dose: 0.25 mg Ascorbic Acid (Vitamin C) 500 mg PO BID REPLACED BY [facility] Last Admin: 12/17/18 08:51 Dose: 500 mg Aspirin (Ecotrin) 325 mg PO DAILY REPLACED BY [facility] Last Admin: 12/17/18 08:50 Dose: 325 mg Cholecalciferol (Vitamin D3) 25 mcg PO DAILY REPLACED BY [facility] Last Admin: 12/17/18 08:50 Dose: 25 mcg Donepezil HCl (Aricept) 10 mg PO BEDTIME REPLACED BY [facility] Last Admin: 12/16/18 21:48 Dose: 10 mg Fish Oil (Fish Oil) 1 gm PO DAILY REPLACED BY [facility] Last Admin: 12/17/18 08:50 Dose: 1 gm Glucosamine/Chondroitin (Glucosamine-Chondroitin 500-400 Capsule) 1 cap PO BID REPLACED BY [facility] Last Admin: 12/17/18 08:51 Dose: 1 cap Hydrochlorothiazide (Hydrochlorothiazide) 12.5 mg PO DAILY REPLACED BY [facility] Last Admin: 12/15/18 09:15 Dose: Not Given Vancomycin HCl 1 gm/ Sodium (Chloride) 250 mls @ 167 mls/hr IV Q12H REPLACED BY [facility] Last Admin: 12/16/18 23:26 Dose: 167 mls/hr Piperacillin/Tazobactam/ (Dextrose 3.375 gm/ Premix) 50 mls @ 100 mls/hr IV Q6H REPLACED BY [facility] Last Admin: 12/17/18 06:22 Dose: 100 mls/hr Sodium Chloride (Normal Saline) 1,000 mls @ 150 mls/hr IV ASDIRECTED REPLACED BY [facility] Last Admin: 12/16/18 23:24 Dose: 150 mls/hr Levothyroxine Sodium (Levothyroxine) 75 mcg PO ACBREAKFAST REPLACED BY [facility] Last Admin: 12/17/18 07:57 Dose: 75 mcg Multivitamins/Minerals (Centrum) 1 tab PO DAILY REPLACED BY [facility] Last Admin: 12/17/18 08:51 Dose: 1 tab Non-Formulary Medication (Flaxseed Oil [Flax Oil]) 2,000 mg PO DAILY REPLACED BY [facility] Last Admin: 12/15/18 13:29 Dose: Not Given Pantoprazole Sodium (Protonix Iv) 40 mg IVPUSH DAILY REPLACED BY [facility] Last Admin: 12/17/18 08:52 Dose: 40 mg Psyllium Husk (Metamucil Sugar Free) 1 pkt PO DAILY REPLACED BY [facility] Last Admin: 12/17/18 08:52 Dose: 1 pkt Sodium Chloride (Saline Flush) 10 ml FLUSH Q8HR PRN PRN Reason: keep vein open Last Admin: 12/15/18 11:23 Dose: 10 ml Vancomycin HCl (Pharmacy To Dose - Vancomycin) 1 dose .XX Q12H REPLACED BY [facility] Vitamin E (Vitamin E) 400 units PO DAILY REPLACED BY [facility] Last Admin: 12/17/18 08:51 Dose: 400 units Discontinued Medications Vancomycin HCl 1 gm/ Sodium (Chloride) 250 mls @ 167 mls/hr IV Q12H REPLACED BY [facility] Last Admin: 12/15/18 11:48 Dose: Not Given Sodium Chloride (Normal Saline) 1,000 mls @ 60 mls/hr IV ASDIRECTED REPLACED BY [facility] Last Admin: 12/15/18 11:27 Dose: 60 mls/hr Sodium Chloride (Normal Saline) 400 mls @ 999 mls/hr IV .BOLUS ONE Stop: 12/16/18 10:07 Last Admin: 12/16/18 10:13 Dose: 999 mls/hr Potassium Chloride (Klor-Con 10) 20 meq PO ONETIME ONE Stop: 12/16/18 17:01 Last Admin: 12/16/18 16:48 Dose: 20 meq - Exam Quality Assessment: DVT Prophylaxis. No: Supplemental Oxygen General: Alert, Cooperative, No Acute Distress. No: Oriented Neck: No JVD Lungs: Clear to Auscultation, Normal Respiratory Effort Cardiovascular: Regular Rate, Regular Rhythm. No: Tachycardia Extremities: No Pedal Edema Peripheral Pulses: 2+: Radial (L) Neurological: Normal Speech Psy/Mental Status: Alert, Normal Mood. No: Agitated - Problem List Review Problem List Initiated/Reviewed/Updated: Yes - My Orders Last 24 Hours: My Active Orders 12/16/18 09:45 Sodium Chloride 0.9% [Normal Saline] 1,000 ml IV ASDIRECTED 12/17/18 11:00 VANCOMYCIN TROUGH [CHEM] Routine - Plan Plan:: History summary/prehospital course 83-year-old gentleman was admitted into OBS status by Sara Alaniz NP from [facility]. Patient is a recent resident of a local long-term care center. Patient had been running on and off fevers per [facility] records, along with ongoing weakness and confusion worse than the patient's baseline. Patient also complaining of nonproductive cough over no wheezing or shortness of breath. No GI type symptoms no abdominal pain nausea vomiting or diarrhea. Had UA on December 12 which was negative. Patient was admitted for observation for repeat CBC this morning. Pertinent clinical workup -White count 23,000 neutrophilia 81% --Elevated inflammatory marker, CRP greater than 200, ESR 84, urine clear --Chest x-ray, non-concerning, lungs underinflated, no consolidation --Systolic BP 110 decrease from baseline --Elevated BUN/creatinine ratio --O2 sat 94% RA _ Update/overnight concerns No overnight calls or concerns however concerning low blood pressures early this morning with MAP, White count/neutrophilia, no longer febrile. 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 Alzheimer's dementia- on Aricept and Vitamin E 2. HTN, holding home HCTZ 3. Hypothyroidism- current TSH 4.0 on Levothyroxine. 4. 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 Hypercholesterolemia- on Fish oil. 6. Constipation- Metamucil daily. 7. Osteoarthritis- Glucosamine BID. Acetaminophen PRN. 8. Carotid artery disease. Add PPI to aspirin 9. Abdominal aortic aneurysm, without rupture. No bruits Dispostion/overall plan --Continue inpatient status --DC Zoysn, ADD ceftriaxone, keep vancomycin until until sensitivity to penicillin can be confirmed. --[place] lock fluids, encourqage PO --Incentive spirometer, encourage --Ongoing BC surveillance since BC gm + cocci, --Holding HCTZ --Reduce aspirin --DVT prophylaxis teds, --GI prophylaxis PPI, especially in light of ASA regimen
[2018-12-17] MEDS: cefTRIAXone 1 GM Vial IVPUSH SCH (11:34)
[2018-12-17] MEDS ORDERED: Sodium Chloride 0.9% 250 ML IV SCH (12:30)
[2018-12-17] MEDS: Donepezil 10 MG Tab PO SCH (22:00)
[2018-12-18] MEDS: guaiFENesin/Dextromethorphan 100-10 MG/5 ML Soln 5 ML Cup PO PRN ×3 (00:46→14:25)
[2018-12-18] MEDS: ALPRAZolam 0.25 MG Tab PO PRN (05:34)
[2018-12-18] MEDS: Levothyroxine 75 MCG Tab PO SCH (06:48)
[2018-12-18] MEDS: Pantoprazole 40 MG Vial IVPUSH SCH (08:33)
[2018-12-18] MEDS: Aspirin 81 MG Tab.EC PO SCH (08:35)
[2018-12-18] MEDS: Cholecalciferol (Vitamin D3) 25 MCG Tab PO SCH (08:36)
[2018-12-18] MEDS: Vitamin E (dl-alpha-tocopherol acetate) 400 Unit Cap PO SCH (08:36)
[2018-12-18] MEDS: Fish Oil/Omega-3 Fatty Acids 1 Gm Cap PO SCH (08:36)
[2018-12-18] MEDS: Chondroitin/Glucosamine Cap PO SCH ×2 (08:36→21:15)
[2018-12-18] MEDS: Ascorbic Acid 500 MG Tab PO SCH ×2 (08:36→21:15)
[2018-12-18] MEDS: Multivitamins with Minerals/Iron/Folic Acid/Lycopene Tab PO SCH (08:37)
[2018-12-18] MEDS: Psyllium Husk Powder Sugar Free 5.85 GM Packet PO SCH (08:37)
[2018-12-18] MEDS: cefTRIAXone 1 GM Vial IVPUSH SCH (08:46)
--- NOTE | 2018-12-18 10:30 | PCM.PN ---
- General Info Date of Service: 12/18/18 - Review of Systems General: Denies: Fever, Malaise, Chills Pulmonary: Reports: Cough. Denies: Shortness of Breath, Sputum, Wheezing Cardiovascular: Reports: No Symptoms Gastrointestinal: Reports: No Symptoms Musculoskeletal: Reports: No Symptoms Skin: Reports: No Symptoms Neurological: Denies: Dizziness, Headache, Numbness Psychiatric: Reports: Confusion (underlying dementia) - Patient Data Vitals - Most Recent: Last Vital Signs Temp 97.7 F 12/18/18 05:40 Pulse 60 12/18/18 05:40 Resp 18 12/18/18 05:40 BP 101/58 L 12/18/18 05:40 Pulse Ox 94 L 12/18/18 05:40 Weight - Most Recent: 136 lb 8 oz I&O - Last 24 Hours: Intake & Output 12/17/18 12/18/18 12/18/18 22:59 06:59 14:59 Intake Total 125 430 Balance 125 430 Lab Results Last 24 Hours: Laboratory Results - last 24 hr 12/17/18 12/18/18 Range/Units 11:00 07:25 WBC 10.73 H (5.00-10.00) 10^3/uL RBC 2.73 L (4.50-6.00) 10^6/uL Hgb 8.9 L (13.0-17.0) g/dL Hct 26.7 L (40.0-52.0) % MCV 97.8 H (82.0-92.0) fL MCH 32.6 H (27.0-31.0) pg MCHC 33.3 (32.0-36.0) g/dL RDW 13.3 (11.5-14.5) % Plt Count 393 (150-400) 10^3/uL MPV 10.0 (7.4-10.4) fL Immature Gran % (Auto) 2.3 (0.0-5.0) % Neut % (Auto) 67.8 (50.0-70.0) % Lymph % (Auto) 18.5 L (20.0-40.0) % [place] % (Auto) 7.7 (2.0-8.0) % Eos % (Auto) 3.2 H (1.0-3.0) % Baso % (Auto) 0.5 (0.0-1.0) % Immature Gran # (Auto) 0.25 (0.00-0.50) 10^3/uL Neut # (Auto) 7.27 H (2.50-7.00) 10^3/uL Lymph # (Auto) 1.99 (1.00-4.00) 10^3/uL [place] # (Auto) 0.83 H (0.10-0.80) 10^3/uL Eos # (Auto) 0.34 H (0.10-0.30) 10^3/uL Baso # (Auto) 0.05 (0.00-0.10) 10^3/uL Vancomycin Trough 13.4 (10-20) ug/mL [place] Results Last 24 Hours: Microbiology 12/16/18 07:20 Aerobic Blood Culture - Final Blood - Venous Anaerobic Blood Culture - Preliminary NO GROWTH AFTER 2 DAYS 12/16/18 07:35 Aerobic Blood Culture - Preliminary Blood - Venous - Lab Draw NO GROWTH AFTER 2 DAYS Anaerobic Blood Culture - Preliminary NO GROWTH AFTER 2 DAYS 12/14/18 19:00 Bacterial Identification - Preliminary Blood Streptococcus Pneumoniae 12/14/18 19:00 Bacterial Identification - Preliminary Blood Streptococcus Pneumoniae Med Orders - Current: Current Medications Acetaminophen (Tylenol) 650 mg PO Q4H PRN PRN Reason: FEVER Last Admin: 12/17/18 02:24 Dose: 650 mg Alprazolam (Xanax) 0.25 mg PO TID PRN PRN Reason: Agitation Last Admin: 12/18/18 05:34 Dose: 0.25 mg Ascorbic Acid (Vitamin C) 500 mg PO BID [facility] Last Admin: 12/18/18 08:36 Dose: 500 mg Aspirin (Halfprin) 81 mg PO WITHBREAKFAST [facility] Last Admin: 12/18/18 08:35 Dose: 81 mg Ceftriaxone Sodium (Rocephin) 1 gm IVPUSH Q24H [facility] Last Admin: 12/18/18 08:46 Dose: 1 gm Cholecalciferol (Vitamin D3) 25 mcg PO DAILY [facility] Last Admin: 12/18/18 08:36 Dose: 25 mcg Donepezil HCl (Aricept) 10 mg PO BEDTIME [facility] Last Admin: 12/17/18 22:00 Dose: 10 mg Fish Oil (Fish Oil) 1 gm PO DAILY [facility] Last Admin: 12/18/18 08:36 Dose: 1 gm Glucosamine/Chondroitin (Glucosamine-Chondroitin 500-400 Capsule) 1 cap PO BID [facility] Last Admin: 12/18/18 08:36 Dose: 1 cap Guaifenesin/Phenylephrine HCl (Robitussin Dm) 10 ml PO Q4H PRN PRN Reason: Cough Last Admin: 12/18/18 05:34 Dose: 10 ml Hydrochlorothiazide (Hydrochlorothiazide) 12.5 mg PO DAILY [facility] Last Admin: 12/15/18 09:15 Dose: Not Given Vancomycin HCl 1.25 gm/ Sodium (Chloride) 250 mls @ 166.667 mls/hr IV Q12H [facility] Last Admin: 12/17/18 23:17 Dose: 166.667 mls/hr Sodium Chloride (Normal Saline) 250 mls @ 50 mls/hr IV ASDIRECTED [facility] Last Admin: 12/18/18 00:57 Dose: 50 mls/hr Levothyroxine Sodium (Levothyroxine) 75 mcg PO ACBREAKFAST [facility] Last Admin: 12/18/18 06:48 Dose: 75 mcg Multivitamins/Minerals (Centrum) 1 tab PO DAILY [facility] Last Admin: 12/18/18 08:37 Dose: 1 tab Non-Formulary Medication (Flaxseed Oil [Flax Oil]) 2,000 mg PO DAILY [facility] Last Admin: 12/15/18 13:29 Dose: Not Given Pantoprazole Sodium (Protonix Iv) 40 mg IVPUSH DAILY [facility] Last Admin: 12/18/18 08:33 Dose: 40 mg Psyllium Husk (Metamucil Sugar Free) 1 pkt PO DAILY [facility] Last Admin: 12/18/18 08:37 Dose: 1 pkt Ramelteon (Rozerem) 8 mg PO BEDTIME [facility] Last Admin: 12/17/18 22:00 Dose: 8 mg Sodium Chloride (Saline Flush) 10 ml FLUSH Q8HR PRN PRN Reason: keep vein open Last Admin: 12/15/18 11:23 Dose: 10 ml Vancomycin HCl (Pharmacy To Dose - Vancomycin) 1 dose .XX Q12H [facility] Vitamin E (Vitamin E) 400 units PO DAILY [facility] Last Admin: 12/18/18 08:36 Dose: 400 units Discontinued Medications Aspirin (Ecotrin) 325 mg PO DAILY [facility] Last Admin: 12/17/18 08:50 Dose: 325 mg Vancomycin HCl 1 gm/ Sodium (Chloride) 250 mls @ 167 mls/hr IV Q12H [facility] Last Admin: 12/15/18 11:48 Dose: Not Given Sodium Chloride (Normal Saline) 1,000 mls @ 60 mls/hr IV ASDIRECTED [facility] Last Admin: 12/15/18 11:27 Dose: 60 mls/hr Vancomycin HCl 1 gm/ Sodium (Chloride) 250 mls @ 167 mls/hr IV Q12H [facility] Last Admin: 12/17/18 12:12 Dose: Not Given Piperacillin/Tazobactam/ (Dextrose 3.375 gm/ Premix) 50 mls @ 100 mls/hr IV Q6H [facility] Last Admin: 12/17/18 06:22 Dose: 100 mls/hr Sodium Chloride (Normal Saline) 1,000 mls @ 150 mls/hr IV ASDIRECTED [facility] Last Admin: 12/16/18 23:24 Dose: 150 mls/hr Sodium Chloride (Normal Saline) 400 mls @ 999 mls/hr IV .BOLUS ONE Stop: 12/16/18 10:07 Last Admin: 12/16/18 10:13 Dose: 999 mls/hr Potassium Chloride (Klor-Con 10) 20 meq PO ONETIME ONE Stop: 12/16/18 17:01 Last Admin: 12/16/18 16:48 Dose: 20 meq - Exam Quality Assessment: No: Supplemental Oxygen General: Alert, Cooperative, No Acute Distress HEENT: Mucous Membr. Moist/[place] Neck: Supple. No: No JVD Lungs: Rales (Mild crackles noted to the RLL) Cardiovascular: Regular Rate, Regular Rhythm GI/Abdominal Exam: Normal Bowel Sounds, Soft, Non-Tender (Male) Exam: Deferred Extremities: Normal Inspection, Pedal Edema (Trace pretibial and ankle pitting edema.) Skin: Warm, Dry, Intact Neurological: No New Focal Deficit Psy/Mental Status: Alert, Other (Underlying dementia ) Physical Findings Comments:: Patient is noted to be more confused today. No significant behavioral disturbances at this time. - Problem List Review Problem List Initiated/Reviewed/Updated: Yes - Plan Plan:: History summary/prehospital course 83-year-old gentleman was admitted into OBS status on 12/15/18. Patient is a resident of a local long-term care center. Patient had been running on and off fevers per [facility] records, along with ongoing weakness and confusion worse than the patient's baseline. Patient also complaining of nonproductive cough without wheezing or shortness of breath. No GI type symptoms including no abdominal pain, nausea, vomiting, or diarrhea. UA on December 12 which was negative. Patient was admitted initially for observation for leukocytosis. Pertinent clinical workup -White count 23,000 neutrophilia 81% --Elevated inflammatory marker, CRP greater than 200, ESR 84, urine clear --Chest x-ray, non-concerning, lungs underinflation, no consolidation --Systolic BP 110 decrease from baseline --Elevated BUN/creatinine ratio --O2 sat 94% RA _ Update/overnight concerns Call received overnight around 2200 for concerns of increased confusion and agitation. Patient has underlying dementia and had been given his evening Ramelteon and a PRN dose of Xanax just prior to provider contact. Patient was able to be redirected without further pharmacologic intervention. Noting increased confusion and agitation at times throughout shift. White count and neutrophilia improved. Continues to be afebrile. Initial blood cx demonstrate both Aerobic/Anaerobic gram positive cocci (streptococcus pneumoniae). Sensitivity returned today and PCN sensitive. Repeat blood cultures on 12/16/18 showing Aerobic gram positive cocci x 1 set. Now growth after 2 days on anaerobic or second set of blood cultures. Primary hospital problems --Streptococcal pneumonia, definitive, HCAP, --Bacteremia/streptococcal pneumonia identification, without septic shock, repeat blood culture 12/16/18 demonstrating gram positive cocci on aerobic set x1. --Anemia, multi-factorial, 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 --Delirium- Underlying Alzheimer's. Increased confusion with agitation and irritability at times throughout shift. Decrease benzodiazepine to daily PRN. Add low dose Zyprexa at HS. Consider referral to Dr. Hdz upon discharge back to LTC. Chronic/stable problems 1. Alzheimer's dementia- on Aricept and Vitamin E. 2. HTN, holding home HCTZ 3. Hypothyroidism- current TSH 4.0 on Levothyroxine. 4. 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 Hypercholesterolemia- on Fish oil. 6. Constipation- Metamucil daily. 7. Osteoarthritis- Glucosamine BID. Acetaminophen PRN. 8. Carotid artery disease. continue PPI with low dose aspirin 9. Abdominal aortic aneurysm, without rupture. No bruits Dispostion/overall plan --Continue inpatient status --Blood culture showing sensitivity to PCN. Discontinue Vancomycin. Continue Rocephin. --SL fluids, encourage PO intake --Incentive spirometer, encourage --Ongoing BC surveillance since BC gram positive cocci. Repeat blood culture x 1. --Holding HCTZ --DVT prophylaxis teds, --GI prophylaxis PPI, especially in light of ASA regimen --Delirium Prophylaxis- Ramelteon.
[2018-12-18] MEDS ORDERED: ALPRAZolam 0.25 MG Tab PO PRN (13:42)
[2018-12-18] MEDS ORDERED: OLANZapine 5 MG Tab PO SCH (21:00)
[2018-12-18] MEDS: Donepezil 10 MG Tab PO SCH (21:17)
[2018-12-18] MEDS: Sodium Chloride 0.9% 10 ML Syringe FLUSH PRN (21:18)
[2018-12-19] MEDS: guaiFENesin/Dextromethorphan 100-10 MG/5 ML Soln 5 ML Cup PO PRN (03:49)
[2018-12-19 06:02] VITALS: BP 113/58; PULSE 60
[2018-12-19] MEDS: Levothyroxine 75 MCG Tab PO SCH (06:48)
[2018-12-19] MEDS: Psyllium Husk Powder Sugar Free 5.85 GM Packet PO SCH (09:03)
[2018-12-19] MEDS: Aspirin 81 MG Tab.EC PO SCH (09:03)
[2018-12-19] MEDS: Ascorbic Acid 500 MG Tab PO SCH (09:04)
[2018-12-19] MEDS: Vitamin E (dl-alpha-tocopherol acetate) 400 Unit Cap PO SCH (09:04)
[2018-12-19] MEDS: Fish Oil/Omega-3 Fatty Acids 1 Gm Cap PO SCH (09:04)
[2018-12-19] MEDS: Multivitamins with Minerals/Iron/Folic Acid/Lycopene Tab PO SCH (09:04)
[2018-12-19] MEDS: Cholecalciferol (Vitamin D3) 25 MCG Tab PO SCH (09:04)
[2018-12-19] MEDS: Chondroitin/Glucosamine Cap PO SCH (09:04)
[2018-12-19] MEDS: Pantoprazole 40 MG Vial IVPUSH SCH (09:05)
[2018-12-19] MEDS: cefTRIAXone 1 GM Vial IVPUSH SCH (09:33)
--- NOTE | 2018-12-19 10:08 | PCM.DCSUM1 ---
Discharge Summary - Hospital Course Diagnosis: Stroke: No - Discharge Data Discharge Date: 12/19/18 Discharge Disposition: DC/Tfer to SNF 03 Condition: Good - Referral to Home Health Primary Care Physician: Corie Schwartz MD - Patient Instructions Diet: Usual Diet as Tolerated Activity: Cough & Deep Breathe Driving: Do Not Drive Showering/Bathing: May Shower Notify Provider of: Fever, Nausea and/or Vomiting Other/Special Instructions: Blood cultures, BMP, CBC Wednesday. Notify provider with any increase agitation. Rocephin, 1 g IM daily, provider to follow-up. Hold HCTZ until provider follow-up. Stopped benzodiazepine added low-dose Zyprexa at HS. Provider to consider referral to Dr. Hdz - Discharge Plan *PRESCRIPTION DRUG MONITORING PROGRAM REVIEWED*: Not Applicable *COPY OF PRESCRIPTION DRUG MONITORING REPORT IN PATIENT RAUL: Not Applicable Prescriptions/Med Rec: Aspirin [Halfprin] 81 mg PO DAILY #30 tab.ec cefTRIAXone [Rocephin] 1 gm IM Q24H 5 Days #5 vial OLANZapine [ZyPREXA] 2.5 mg PO BEDTIME #30 tablet Omeprazole 20 mg PO ACBREAKFAST #30 cap.sr Home Medications: Home Meds Fish Oil/[place]-3 Fatty Acids [Fish Oil 1,000 MG] 1,000 mg PO DAILY 01/18/15 [ History] Gluc Cardenas 2KCl/Chondr/Vit C/Tim [Glucosamine-Chondr Complex] 1 tab PO BID [History] Hydrochlorothiazide 12.5 mg PO DAILY 01/18/15 [History] Levothyroxine 75 mcg PO ACBREAKFAST 01/18/15 [History] Meclizine HCl [Antivert] 25 mg PO DAILY PRN 01/18/15 [History] Multivit-Min/FA/Lycopene/Lut [Centrum Silver Tablet] 1 tab PO DAILY 01/18/15 [ History] Psyllium [Metamucil] 1 tbs PO DAILY 01/18/15 [History] Vitamin E 400 units PO DAILY 01/18/15 [History] Ascorbic Acid [Vitamin C] 500 mg PO BID 10/02/18 [History] Cholecalciferol (Vitamin D3) [Vitamin D3] 1,000 unit PO DAILY 10/02/18 [History] Donepezil HCl 10 mg PO BEDTIME 10/02/18 [History] Flaxseed Oil [Flax Oil] 2,000 mg PO DAILY 10/03/18 [History] Acetaminophen [Tylenol Arthritis] 650 mg PO BID PRN 12/14/18 [History] Acetaminophen [Tylenol] 650 mg PO Q4H PRN 12/14/18 [History] Aspirin [Halfprin] 81 mg PO DAILY #30 tab.ec 12/19/18 [Rx] OLANZapine [ZyPREXA] 2.5 mg PO BEDTIME #30 tablet 12/19/18 [Rx] Omeprazole 20 mg PO ACBREAKFAST #30 cap.sr 12/19/18 [Rx] cefTRIAXone [Rocephin] 1 gm IM Q24H 5 Days #5 vial 12/19/18 [Rx] - Discharge Summary/Plan Comment DC Time >30 min.: Yes Discharge Summary/Plan Comment: Final diagnosis --Streptococcal pneumonia, HCA --Bacteremia/streptococcal pneumonia --Anemia, multi-factorial, 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 --Delirium- Underlying Alzheimer's. Increased confusion with agitation. Added Zyprexa Chronic/stable problems --Alzheimer's dementia, cont Aricept and Vitamin E. Added low dose Zyprexa --HTN, holding home HCTZ until f/u --Hypothyroidism- current TSH 4.0 on Levothyroxine. --History of BPPV- holding home meclizine until provider f/u --Hypercholesterolemia- on Fish oil. --Constipation- Metamucil daily. --Osteoarthritis- Glucosamine BID. Acetaminophen PRN. --Carotid artery disease. Added PPI, changed ASA to 81mg. --Abdominal aortic aneurysm, without rupture. No bruits History summary/prehospital course 83-year-old gentleman was admitted into OBS status at [facility] on 12/15/18. Patient is a resident of a LTC and had been running on/off fevers per retirement records, along with ongoing weakness and confusion worse than the patient's baseline. Upon admission he had a nonproductive cough without wheezing or shortness of breath. No GI type symptoms including no abdominal pain, nausea, vomiting, or diarrhea. UA on December 12 which was negative. Patient was admitted initially for observation for leukocytosis. Pertinent clinical workup -White count 23,000 neutrophilia 81% --Elevated inflammatory marker, CRP greater than 200, ESR 84, urine clear --Chest x-ray, initial non-concerning, lungs underinflation, no consolidation --Systolic BP 110 decrease from baseline --Elevated BUN/creatinine ratio --O2 sat 94% RA Hospital course Patient significant leukocytosis/leutrophilia on admission--source was questionable however started having increasing cough and after hydration repeat a chest x-ray likely etiology of infection as patient had bilateral interstitial opacities suggestive of infiltrates. He was quickly started on broad-spectrum antibiotics along with vancomycin due to HCAP, initial anaerobic and aerobic blood cultures both demonstrated gram-positive cocci and definitive ID grew streptococcal pneumonia. Rocephin was added and upon blood culture PCN sensitivity ABX were de-escalated and Rocephin remain monotherapy. Repeated BC on 12/16/18 showed Aerobic gram positive cocci x 1 set. No growth after 3 days on anaerobic or second set of blood cultures. Therapeutic vancomycin trough He never became hemodynamically unstable, wide range of MAP ~ 60-94 without sx, WBC improved significantly, neutrophilia resolved, he did have some reactive thrombocytosis as expected. Tolerated all treatments and/or medications without side effects or adverse events. Blood pressures were monitored carefully. MAXIMUM TEMPERATURE 100.5 early on. HCTZ was held due to bacteremia, PPI was added for GI stress prophylaxis and will continue due to ASA use. Aspirin was decreased to 81 mg daily. Blood culture repeated surveillance grew ongoing streptococcal pneumoniae. He had no mucus production, no spirometer was encouraged. He did have significant Anemia which was felt to be multi-factorial i.e. secondary to decreased stem-cell production in light of infection, delutional, no anisocytosis, much improved on discharge. Negative influenza A/B, DVT prophylaxis teds. Patient had some increased confusion and agitation. Patient has underlying dementia and had been given Ramelteon and a PRN dose of Xanax just prior to provider contact. Patient was able to be redirected without further pharmacologic intervention. Noting increased confusion and agitation at times throughout shift. Benzodiazepine was changed to when necessary and Zyprexa was added Medications changes/adjustments upon discharge Ceftriaxone, 1 g IM daily 5 days, next dose 12/20, (continue until BC negative) Aspirin, changed from 325mg to 81 mg daily Zyprexa 2.5mg PO HS (newly added) Discontinued Xanax Omeprazole, 20 mg AC PO daily, (newly added) Hold meclizine, HCTZ until provider follow-up Disposition/overall plan Discharge back to long-term care Ceftriaxone, 1 g IM daily 5 days, next dose 12/20, (continue until BC negative) Blood cultures, CBC, BMP, December 21 provider on rounds with results Monitor for signs and symptoms of pulmonary compromise and/or infection Incentive spirometer encourage Assess Prevnar status Recommend referral to Dr. Hdz - General Info Functional Status: Reports: Pain Controlled, Tolerating Diet, Urinating, Incentive Spirometry. Denies: Ambulating, New Symptoms - Review of Systems General: Reports: No Symptoms HEENT: Reports: No Symptoms Pulmonary: Reports: Cough (Mild, nonproductive) Cardiovascular: Reports: Dyspnea on Exertion. Denies: Chest Pain, Palpitations , Orthopnea, Edema Gastrointestinal: Reports: No Symptoms Genitourinary: Reports: Incontinence Skin: Reports: No Symptoms Psychiatric: Reports: Confusion. Denies: Agitation - Patient Data Vitals - Most Recent: Last Vital Signs Temp 98 F 12/19/18 06:01 Pulse 60 12/19/18 06:01 Resp 20 12/19/18 06:01 BP 113/58 L 12/19/18 06:01 Pulse Ox 90 L 12/19/18 06:01 Weight - Most Recent: 136 lb 8 oz I&O - Last 24 hours: Intake & Output 12/18/18 12/19/18 12/19/18 22:59 06:59 14:59 Intake Total 1300 300 Output Total 175 400 Balance 1125 -100 Lab Results - Last 24 hrs: Laboratory Results - last 24 hr 12/18/18 12/19/18 Range/Units 11:30 07:15 WBC 11.45 H (5.00-10.00) 10^3/uL RBC 2.88 L (4.50-6.00) 10^6/uL Hgb 9.5 L (13.0-17.0) g/dL Hct 28.5 L (40.0-52.0) % MCV 99.0 H (82.0-92.0) fL MCH 33.0 H (27.0-31.0) pg MCHC 33.3 (32.0-36.0) g/dL RDW 13.4 (11.5-14.5) % Plt Count 408 H (150-400) 10^3/uL MPV 9.6 (7.4-10.4) fL Immature Gran % (Auto) 2.5 (0.0-5.0) % Neut % (Auto) 66.1 (50.0-70.0) % Lymph % (Auto) 18.7 L (20.0-40.0) % [place] % (Auto) 8.0 (2.0-8.0) % Eos % (Auto) 4.3 H (1.0-3.0) % Baso % (Auto) 0.4 (0.0-1.0) % Immature Gran # (Auto) 0.29 (0.00-0.50) 10^3/uL Neut # (Auto) 7.56 H (2.50-7.00) 10^3/uL Lymph # (Auto) 2.14 (1.00-4.00) 10^3/uL [place] # (Auto) 0.92 H (0.10-0.80) 10^3/uL Eos # (Auto) 0.49 H (0.10-0.30) 10^3/uL Baso # (Auto) 0.05 (0.00-0.10) 10^3/uL Vancomycin Trough 14.9 (10-20) ug/mL MARTA Results - Last 24 hrs: Microbiology 12/16/18 07:35 Aerobic Blood Culture - Preliminary Blood - Venous - Lab Draw NO GROWTH AFTER 3 DAYS Anaerobic Blood Culture - Preliminary NO GROWTH AFTER 3 DAYS 12/16/18 07:20 Aerobic Blood Culture - Final Blood - Venous Anaerobic Blood Culture - Preliminary NO GROWTH AFTER 3 DAYS 12/14/18 19:00 Bacterial Identification - Final Blood Streptococcus Pneumoniae 12/14/18 19:00 Bacterial Identification - Final Blood Streptococcus Pneumoniae Med Orders - Current: Current Medications Acetaminophen (Tylenol) 650 mg PO Q4H PRN PRN Reason: FEVER Last Admin: 12/17/18 02:24 Dose: 650 mg Alprazolam (Xanax) 0.25 mg PO DAILY PRN PRN Reason: Agitation Ascorbic Acid (Vitamin C) 500 mg PO BID [facility] Last Admin: 12/19/18 09:04 Dose: 500 mg Aspirin (Halfprin) 81 mg PO WITHBREAKFAST [facility] Last Admin: 12/19/18 09:03 Dose: 81 mg Ceftriaxone Sodium (Rocephin) 1 gm IVPUSH Q24H FARIDEH Last Admin: 12/18/18 08:46 Dose: 1 gm Cholecalciferol (Vitamin D3) 25 mcg PO DAILY FARIDEH Last Admin: 12/19/18 09:04 Dose: 25 mcg Donepezil HCl (Aricept) 10 mg PO BEDTIME FARIDE[facility] Last Admin: 12/18/18 21:17 Dose: 10 mg Fish Oil (Fish Oil) 1 gm PO DAILY FARIDEH Last Admin: 12/19/18 09:04 Dose: 1 gm Glucosamine/Chondroitin (Glucosamine-Chondroitin 500-400 Capsule) 1 cap PO BID FARIDEH Last Admin: 12/19/18 09:04 Dose: 1 cap Guaifenesin/Phenylephrine HCl (Robitussin Dm) 10 ml PO Q4H PRN PRN Reason: Cough Last Admin: 12/19/18 03:49 Dose: 10 ml Hydrochlorothiazide (Hydrochlorothiazide) 12.5 mg PO DAILY FARIDE[facility] Last Admin: 12/15/18 09:15 Dose: Not Given Sodium Chloride (Normal Saline) 250 mls @ 50 mls/hr IV ASDIRECTED FARIDEH Last Admin: 12/18/18 00:57 Dose: 50 mls/hr Levothyroxine Sodium (Levothyroxine) 75 mcg PO ACBREAKFAST FARIDEH Last Admin: 12/19/18 06:48 Dose: 75 mcg Multivitamins/Minerals (Centrum) 1 tab PO DAILY FARIDEH Last Admin: 12/19/18 09:04 Dose: 1 tab Non-Formulary Medication (Flaxseed Oil [Flax Oil]) 2,000 mg PO DAILY FARIDEH Last Admin: 12/15/18 13:29 Dose: Not Given Olanzapine (Zyprexa) 2.5 mg PO BEDTIME FARIDEH Last Admin: 12/18/18 21:06 Dose: 2.5 mg Pantoprazole Sodium (Protonix Iv) 40 mg IVPUSH DAILY [facility] Last Admin: 12/19/18 09:05 Dose: 40 mg Psyllium Husk (Metamucil Sugar Free) 1 pkt PO DAILY [facility]ARIDE[facility] Last Admin: 12/19/18 09:03 Dose: 1 pkt Ramelteon (Rozerem) 8 mg PO BEDTIME [facility]ARIDE[facility] Last Admin: 12/18/18 21:16 Dose: 8 mg Sodium Chloride (Saline Flush) 10 ml FLUSH Q8HR PRN PRN Reason: keep vein open Last Admin: 12/18/18 21:18 Dose: 10 ml Vitamin E (Vitamin E) 400 units PO DAILY [facility] Last Admin: 12/19/18 09:04 Dose: 400 units Discontinued Medications Alprazolam (Xanax) 0.25 mg PO TID PRN PRN Reason: Agitation Last Admin: 12/18/18 05:34 Dose: 0.25 mg Aspirin (Ecotrin) 325 mg PO DAILY [facility] Last Admin: 12/17/18 08:50 Dose: 325 mg Vancomycin HCl 1 gm/ Sodium (Chloride) 250 mls @ 167 mls/hr IV Q12H [facility] Last Admin: 12/15/18 11:48 Dose: Not Given Sodium Chloride (Normal Saline) 1,000 mls @ 60 mls/hr IV ASDIRECTED [facility] Last Admin: 12/15/18 11:27 Dose: 60 mls/hr Vancomycin HCl 1 gm/ Sodium (Chloride) 250 mls @ 167 mls/hr IV Q12H [facility] Last Admin: 12/17/18 12:12 Dose: Not Given Piperacillin/Tazobactam/ (Dextrose 3.375 gm/ Premix) 50 mls @ 100 mls/hr IV Q6H [facility] Last Admin: 12/17/18 06:22 Dose: 100 mls/hr Sodium Chloride (Normal Saline) 1,000 mls @ 150 mls/hr IV ASDIRECTED [facility] Last Admin: 12/16/18 23:24 Dose: 150 mls/hr Sodium Chloride (Normal Saline) 400 mls @ 999 mls/hr IV .BOLUS ONE Stop: 12/16/18 10:07 Last Admin: 12/16/18 10:13 Dose: 999 mls/hr Vancomycin HCl 1.25 gm/ Sodium (Chloride) 250 mls @ 166.667 mls/hr IV Q12H [facility] Last Admin: 12/18/18 12:38 Dose: 166.667 mls/hr Potassium Chloride (Klor-Con 10) 20 meq PO ONETIME ONE Stop: 12/16/18 17:01 Last Admin: 12/16/18 16:48 Dose: 20 meq - Exam Quality Assessment: Denies: Supplemental Oxygen General: Reports: Alert, Cooperative, No Acute Distress. Denies: Oriented Neck: Reports: Supple Lungs: Reports: Rhonchi Cardiovascular: Reports: Regular Rate, Regular Rhythm GI/Abdominal Exam: Soft. No: Distended Back Exam: Denies: CVA Tenderness (L), CVA Tenderness (R) Extremities: No Pedal Edema Skin: Denies: Rash Psy/Mental Status: Reports: Alert, Normal Affect, Labile Mood. Denies: Hallucinations
[2018-12-19] MEDS ORDERED: Loperamide 2 MG Cap PO ONE (10:49)
== END 2018-12-19 11:45 | DRG 871 ==
LOC: KA.MS 10:21 → UNDOADMOB 18:30 → KA.MS 18:30 → OBSVTOIN 12-15 10:21
PROVIDERS: ADMIT Nurse Practitioner Family; ATTEND Family Medicine
DX: R50.9 Fever, unspecified (principal); R53.1 Weakness; R41.0 Disorientation, unspecified; A40.3 Sepsis due to Streptococcus pneumoniae; J13 Pneumonia due to Streptococcus pneumoniae; I10 Essential (primary) hypertension; F05 Delirium due to known physiological condition; D64.9 Anemia, unspecified; I25.10 Atherosclerotic heart disease of native coronary artery without angina pectoris; G30.9 Alzheimer's disease, unspecified; F02.80 Dementia in other diseases classified elsewhere, unspecified severity, without behavioral disturbance, psychotic disturbance, mood disturbance, and anxiety; E03.9 Hypothyroidism, unspecified; E78.00 Pure hypercholesterolemia, unspecified; K59.00 Constipation, unspecified; M19.90 Unspecified osteoarthritis, unspecified site; I71.4 Abdominal aortic aneurysm, without rupture; I65.29 Occlusion and stenosis of unspecified carotid artery; R45.1 Restlessness and agitation; Z79.890 Hormone replacement therapy; Z79.82 Long term (current) use of aspirin; Z79.899 Other long term (current) drug therapy
CPT/HCPCS: 36415; 71046; 80048; 80053; 80202; 81001; 83605; 85008; 85025; 85651; 87040; 87077; 87186; 87804; A9270-GY; C9113; G0378; G0379; J0696; J2543; J3370; J7030; J7050